=== PATIENT | female | born 1965 | race Caucasian/White ===

== ENCOUNTER → 2024-02-02 | Outpatient (CLI) | payer BC, SELFPAY ==
--- NOTE | 2024-02-02 16:12 | MRI_ITS ---
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 MRI examination of brain orbits obtained with standard protocol including multiplanar multiecho pre and postcontrast imaging. Pre and Postcontrast imaging obtained. IV Contrast Dosage and Agent: 9 mL Clariscan. COMPARISON: : No relevant prior comparison study available FINDINGS: HEMISPHERES, CEREBELLUM AND BRAINSTEM: 1. The cerebral parenchyma, ventricular system, subarachnoid spaces have normal configuration and density. There is a normal gyral pattern. There is normal soler/white differentiation. No midline shift.. 2. Diffuse involutional change and chronic microvascular deep white matter disease. 3. No areas fluid restriction or acute ischemia. No evidence of hemosiderin deposition or hemorrhage. 4. No areas of abnormal intraparenchymal or extra-axial contrast enhancement. 5. No intraparenchymal mass, hemorrhage, or acute territorial infarct. 6. The cerebellum, brainstem, basilar and suprasellar cisterns have normal configuration. Chronic white matter changes are present within the basilar gary. Normal appearance however of the central course of the 6th cranial nerve. Normal appearance of the cisternal course of the abducens nerves, and normal appearance of the cavernous sinuses bilaterally. No areas of abnormal enhancement or mass effect. 7. . No Chiari malformation. PITUITARY: Infundibulum and pituitary have normal configuration. Midline structures appear normal. CSF SPACES: Appropriate for age. No hydrocephalus. Basal cisterns are patent. VESSELS: 1. There are normal flow voids noted in the great vessels at the skull base ORBITS AND PARANASAL SINUSES: 1. Normal appearance of the bony orbits. Normal appearance the globes, and ocular lenses. Normal appearance of the optic nerves bilaterally. No evidence of significant fluid accumulation along the optic nerve sheath bilaterally. 2. Normal appearance of the intraconal and extraconal compartments, and normal appearance of the musculotendinous ring. There does appear to be conjugate gaze. 3. Paranasal sinuses are clear. BONY ELEMENTS: Bony elements of the cranial vault, facial skeleton and skull base have normal appearance. SCALP AND SOFT TISSUES: Normal appearance of the soft tissues of the scalp and the visualized face OTHER: None MRI/Brain W/WO Contrast IMPRESSION: 1. Mild involutional change and chronic microvessel deep white matter disease. 2. No intraparenchymal mass, hemorrhage, or acute territorial infarct. No areas of abnormal contrast enhancement. 3. Normal appearance of the central, cisternal, cavernous and expected intraorbital course of the 6th cranial nerve bilaterally. No masses or abnormal enhancement. 4. Normal appearance of the orbits including the globes, ocular lenses, and the optic nerves. Electronically Signed: Addison Kay MD at 1:25 EDT ,
[2024-02-02 17:01] LABS: CREATININE FINGERSTICK < 1.0 mg/dL (0.55-1.02); EGFR FINGERSTICK > 60.0000 mL/min (>60)
== END | disposition home or self-care (01) ==
PROVIDERS: PCP Nurse Practitioner Primary Care; Referring Provider Ophthalmology; Visit Provider Ophthalmology
DX: Z01.812 Encounter for preprocedural laboratory examination (principal); H49.22 Sixth [abducent] nerve palsy, left eye; H47.332 Pseudopapilledema of optic disc, left eye; H55.00 Unspecified nystagmus
CPT/HCPCS: 70553; A9575

== ENCOUNTER → 2024-02-07 | Outpatient (CLI) | payer BC, SELFPAY ==
[2024-02-07 15:47] LABS: CRP 9.32 mg/L (0.0-3.0)
[2024-02-07 15:48] LABS: Absolute Lymphocyte Count 0.78 X10^3/uL (0.83-4.51); Absolute Neutrophil Count 5.9 X10^3/uL (2.0-7.7); Basophil# 0.04 X10^3/uL; Basophil% 0.5 % (0-1); Eosinophil# 0.02 X10^3/uL; Eosinophils% 0.3 % (0-5); Erythrocyte Sedimentation Rate 16 mm/hr (0-30); Hematocrit 36.8 % (37-47); Lymphocyte # 0.78 X10^3/ul (0.83-4.51); Lymphocyte % 10.3 % (19-41); Mean Corp Hgb Conc 35.3 g/dL (32-36); Mean Corpuscular Hgb 34.8 pg (27.0-32.0); Mean Corpuscular Volume 98.4 fL (81-99); Mean Platelet Vol. 11.5 fl (6.2-12.0); Monocyte# 0.85 X10^3/uL; Monocyte% 11.2 % (0-10); NRBC Flagged by Analyzer 0 % (0-5); Neutrophil # 5.88 X10^3/uL (2.7-7.7); Neutrophil % 77.3 % (47-70); Platelet Count 352 K/mm3 (150-450); RBC Distribution Width CV 13.4 % (11.6-14.6); RBC Distribution Width SD 48.5 fl (35.1-43.9); Red Blood Count 3.74 M/mm3 (4.2-5.4); White Blood Count 7.6 K/mm3 (4.4-11.0)
[2024-02-07 15:59] LABS: Syphilis Antibodies Non-reactive
[2024-02-13 16:11] LABS: Angiotensin Convert Enzyme 33 U/L (14-82); Lyme IgG P18 Ab Absent (.); Lyme IgG P23 Ab Absent (.); Lyme IgG P28 Ab Absent (.); Lyme IgG P30 Ab Absent (.); Lyme IgG P39 Ab Absent (.); Lyme IgG P41 Ab Absent (.); Lyme IgG P45 Ab Absent (.); Lyme IgG P58 Ab Absent (.); Lyme IgG P66 Ab Absent (.); Lyme IgG P93 Ab Absent (.); Lyme IgG WB Interpretation Negative (.); Lyme IgM P23 Ab Absent (.); Lyme IgM P39 Ab Absent (.); Lyme IgM P41 Ab Absent (.); Lyme IgM WB Interpretation Negative (.)
== END | disposition home or self-care (01) ==
PROVIDERS: PCP Nurse Practitioner Primary Care; Referring Provider Ophthalmology; Visit Provider Ophthalmology
DX: H49.22 Sixth [abducent] nerve palsy, left eye (principal); H47.332 Pseudopapilledema of optic disc, left eye; H55.00 Unspecified nystagmus
CPT/HCPCS: 36415; 82164; 85025; 85652; 86140; 86617; 86780

== ENCOUNTER → 2024-02-28 | Outpatient (CLI) | payer BC, SELFPAY ==
--- NOTE | 2024-02-28 15:10 | CT_ITS ---
INDICATION: SIXTH NERVE PALSY LEFT EYE EXAMINATION: CT BRAIN WITHOUT CONTRAST, CTA HEAD, AND CTA NECK TECHNIQUE: Noncontrast axial images were obtained of the brain. Subsequently, routine carotid CT angiogram protocol was performed without and with IV contrast. In addition, images were obtained of the [place] of [place]. NASCET criteria using the distal ICAs for comparison were used for evaluation of stenoses. 3D reconstructions were reviewed. The protocol utilizes one or more of the following dose reduction techniques: automated exposure control, adjustment of mA and/or kV according to patient size,and/or use of iterative reconstruction technique. IV Contrast dosage and agent: 75 cc of [id number] COMPARISON: No relevant prior comparison study available FINDINGS: --CT BRAIN WITHOUT CONTRAST: BRAIN PARENCHYMA: No intra- or extra-axial hemorrhage. No evidence of acute infarct. No intracranial mass or mass effect. There is preservation of the soler/white matter interface. Periventricular deep white matter changes likely due to chronic microvascular disease. Posterior fossa structures are unremarkable. CSF SPACES: Mild diffuse atrophy. Basal cisterns are patent. CALVARIUM, SKULL BASE, PARANASAL SINUSES AND MASTOID AIR CELLS: Clear. No discrete lytic or blastic abnormalities. ASPECTS Score for Acute Strokes: 10 --CTA NECK: AORTIC ARCH AND BRANCHES: Normal anatomy, patent. RIGHT CCA: No occlusion, significant stenosis or dissection. RIGHT ICA: No occlusion, significant stenosis or dissection. LEFT CCA: Minimal calcification in the region of the bulb. No occlusion, significant stenosis or dissection. LEFT ICA: No occlusion, significant stenosis or dissection. RIGHT VERTEBRAL ARTERY: No occlusion, significant stenosis or dissection. LEFT VERTEBRAL ARTERY: No occlusion, significant stenosis or dissection. NECK SOFT TISSUES: Unremarkable. --CTA HEAD: --Anterior circulation: ICAs: No significant stenosis at the intracranial/visualized segments. ACAs: No significant stenosis at the visualized segments. ACOM: Not visualized. MCAs: No significant stenosis at the visualized segments. --Posterior circulation: PCOMs: Patent on the right side. Not visualized on the left side. rda: No significant stenosis at the visualized segments. BASILAR ARTERY: No significant stenosis. VERTEBRAL ARTERIES: No significant stenosis at the intradural/visualized segments. No evidence of intracranial aneurysm or vascular malformation. CT/CTA Head AND Neck W/ Contrast IMPRESSION: 1. No evidence of intracranial great vessel stenosis. 2. No significant stenosis of the bilateral common or internal carotid arteries. 3. Patent bilateral vertebral arteries without evidence of cirrhosis. Electronically Signed: Paul Dickson MD at 15:38 EDT ,
[2024-02-28 18:16] LABS: Erythrocyte Sedimentation Rate 15 mm/hr (0-30)
[2024-02-28 19:02] LABS: Creatinine, Serum 0.94 mg/dL (0.55-1.02); EST Glomerular Filtration Rate 64 mL/min (>60); Est Glom Filt Rate - Afr Amer 78 mL/min (>60); Rheumatoid Factor < 10.0 IU/mL (<15)
[2024-02-29 02:22] LABS: Syphilis Antibodies Non-reactive; Vitamin B12 410 pg/mL (211-911)
[2024-03-04 12:08] LABS: ANA- Speckled Pattern >1:1280 (.); Anti-Nuclear Antibody Test Positive (.); SJOGREN'S Anti-SS-A test > 8.0 AI (0.0-0.9)
[2024-03-04 20:08] LABS: Acetylcholine Receptor Binding < 0.03 nmol/L (0.00-0.24)
== END | disposition home or self-care (01) ==
LOC: CT 14:31
PROVIDERS: PCP Nurse Practitioner Primary Care; Referring Provider Psychiatry & Neurology Neurology; Visit Provider Psychiatry & Neurology Neurology
DX: H49.22 Sixth [abducent] nerve palsy, left eye (principal)
CPT/HCPCS: 36415; 70496; 70498; 82565; 82607; 82746; 84238; 84443; 85652; 86038; 86235; 86431; 86780; Q9967